=== PATIENT | female | born 1980 | race Caucasian/White ===

== ENCOUNTER 2017-12-13 19:49 | Emergency (ER) | payer OTHER ==
[2017-12-13 20:01] VITALS: BP 104/59; PULSE 88; TEMP 98.2; BMI 25.0
--- NOTE | 2017-12-13 20:03 | PDOC ---
Rapid Medical Evaluation Time Seen by Provider: 12/13/17 19:59 Medical Evaluation: Allergies Allergy/AdvReac Type Severity Reaction Status Date / Time No Known Allergies Allergy Verified 12/13/17 19:57 Vital Signs Temp Pulse Resp BP Pulse Ox 98.2 F 88 18 104/59 100 12/13/17 20:00 12/13/17 20:00 12/13/17 20:00 12/13/17 20:00 12/13/17 20:00 12/13/17 20:01 I have performed a brief in-person evaluation of this patient. The patient presents with a chief complaint of abdominal pain intermittently x 2 weeks states worse in past 4 days with nausea and vomiting. Patient reports normal bowel movement, pain is in epigastric area and is not associated with food. Pertinent physical exam finding are NAD lungs: clear bilaterally abdomen: + tenderness in mid epigastric area : no tenerness over suprapubis, no cva tenderness I have ordered the following: urinalysis, urine and labs ordered The patient will proceed to the ED for further evaluation.
[2017-12-13 22:01] LABS: BASO % 0.7 % (0-2.0); HEMATOCRIT 30.3 % (32.4-45.2); HEMOGLOBIN 10.2 GM/dL (10.7-15.3); LYMPH % 35.2 % (8-40); MCH 28.5 pg (25.7-33.7); MCHC 33.9 g/dl (32.0-36.0); MEAN CELL VOLUME 84.3 fl (80-96); MEAN PLT VOLUME 8.2 fl (7.5-11.1); MONO % 7.6 % (3.8-10.2); NEUT % 54.5 % (42.8-82.8); PLATELET COUNT 218 K/MM3 (134-434); RBC 3.59 M/mm3 (3.60-5.2); RDW 14.1 % (11.6-15.6); WHITE BLOOD COUNT 6.7 K/mm3 (4.0-10.0)
[2017-12-13 22:02] LABS: URINE APPEARANCE CLEAR; URINE BILIRUBIN NEGATIVE (<2.0 mg/dL); URINE BLOOD 2+ (NEGATIVE); URINE COLOR YELLOW; URINE GLUCOSE (UA) NEGATIVE (NEGATIVE); URINE KETONE NEGATIVE (NEGATIVE); URINE LEUK ESTERASE NEGATIVE (NEGATIVE); URINE NITRITE NEGATIVE (NEGATIVE); URINE PROTEIN NEGATIVE (NEGATIVE); URINE UROBILINOGEN NEGATIVE mg/dL (0.2-1.0)
[2017-12-13 22:03] LABS: HCG,QUALITATIVE URINE POSITIVE
[2017-12-13 22:05] LABS: EPI CELLS RARE /HPF (FEW); URINE MUCUS MANY
[2017-12-13 22:27] LABS: ALBUMIN 3.7 g/dl (3.4-5.0); ALK PHOS 49 U/L (45-117); ANION GAP 7 (8-16); BILIRUBIN,TOTAL 0.1 mg/dL (0.2-1.0); BLOOD UREA NITROGEN 11 mg/dL (7-18); CALCIUM 8.5 mg/dL (8.5-10.1); CHLORIDE 106 mmol/L (98-107); CO2 26 mmol/L (21-32); CREATININE 0.6 mg/dL (0.55-1.02); GLUCOSE,RANDOM 90 mg/dL (74-106); POTASSIUM 4.4 mmol/L (3.5-5.1); SGOT/AST 19 U/L (15-37); SGPT/ALT 24 U/L (12-78); SODIUM 139 mmol/L (136-145); TOT PROT 6.9 g/dl (6.4-8.2)
[2017-12-13 22:33] LABS: LIPASE 266 U/L (73-393)
[2017-12-13] MEDS ORDERED: ACETAMINOPHEN 1000 MG/100 ML VIAL (NON FORMULARY) IVPB ONE (22:41)
[2017-12-13] MEDS ORDERED: ACETAMINOPHEN INJECTION 100 ML IVPB ONE (22:50)
--- NOTE | 2017-12-13 23:55 | PDOC ---
History of Present Illness - General Chief Complaint: Pain, Acute Stated Complaint: ABD PAIN Time Seen by Provider: 12/13/17 19:59 - History of Present Illness Initial Comments: 12/13/17 23:53 CHIEF COMPLAINT: vomiting HISTORY OF PRESENT ILLNESS: 37 yo F with no significant PMH presents to ED with abdominal pain x 2 weeks and nausea and vomiting x 3-4 days. Patient denies fever, chills, or diarrhea, and reports that the abdominal pain is epigastric in nature. Patient states she is currently on her period, but "this period has been much heavier than usual." She reports regular monthly menses and no urinary symptoms. PAST MEDICAL HISTORY: Denies past medical history FAMILY HISTORY: Denies SOCIAL HISTORY:Denies tobacco, alcohol, illicit drug use. SURGICAL HISTORY: Denies ALLERGIES: No known drug allergies REVIEW OF SYSTEMS General/Constitutional: Denies fever or chills. Denies weakness, weight change. HEENT: Denies change in vision. Denies ear pain or discharge. Denies sore throat. Cardiovascular: Denies chest pain or shortness of breath. Respiratory: Denies cough, wheezing, or hemoptysis. Gastrointestinal: Abdominal pain x 2 weeks, nausea and vomiting x 3-4 days, denies diarrhea or constipation. Denies rectal bleeding. Genitourinary: Denies dysuria, frequency, or change in urination. Musculoskeletal: Denies joint or muscle swelling or pain. Denies neck or back pain. Skin and breasts: Denies rash or easy bruising. PHYSICAL EXAM General Appearance: Well-appearing, appropriately dressed. No apparent distress. HEENT: EOMI, PERRLA. No conjunctival pallor. No photophobia, scleral icterus. Respiratory/Chest: Lungs CTAB. Cardiovascular: RRR. S1, S2. Gastrointestinal/Abdominal: mild tenderness to left upper and lower abdomen. Normal bowel sounds. Abdomen soft, non-distended. No tenderness or rebound tenderness. No organomegaly, pulsatile mass, guarding, hernia, hepatomegaly, splenomegaly. Musculoskeletal/Extremities: Normal inspection. FROM of all extremities, normal capillary refill. Pelvis Stable. No CVA tenderness. No tenderness to extremities, pedal edema, swelling, erythema or deformity. Integumentary: Appropriate color, dry, warm. No cyanosis, erythema, jaundice or rash Neurologic: aerospace control and warning systems II-XII intact. Fully oriented, alert. Appropriate mood/affect. Motor strength 5/5. No appreciable EOM palsy, facial droop or sensory deficit. Past History - Past Medical History Allergies/Adverse Reactions: Allergies Allergy/AdvReac Type Severity Reaction Status Date / Time No Known Allergies Allergy Verified 12/13/17 19:57 Home Medications: Ambulatory Orders Levothyroxine Sodium [Levo-T] 75 mcg PO DAILY 12/13/17 Ondansetron [Zofran Odt -] 4 mg SL TID PRN #21 od.tablet 12/14/17 COPD: No Thyroid Disease: Yes (hypo) - Immunization History Immunization Up to Date: Yes - Suicide/Smoking/Psychosocial Hx Smoking History: Never smoked *Physical Exam - Vital Signs Last Vital Signs Temp Pulse Resp BP Pulse Ox 98.2 F 88 18 104/59 100 12/13/17 20:00 12/13/17 20:00 12/13/17 20:00 12/13/17 20:00 12/13/17 20:00 ED Treatment Course - LABORATORY CBC & Chemistry Diagram: 12/13/17 21:50 12/13/17 21:50 - ADDITIONAL ORDERS Additional order review: Laboratory Results 12/13/17 12/13/17 12/13/17 21:50 21:50 20:58 Sodium 139 Potassium 4.4 Chloride 106 Carbon Dioxide 26 Anion Gap 7 L BUN 11 Creatinine 0.6 Creat Clearance w eGFR > 60 Random Glucose 90 Calcium 8.5 Total Bilirubin 0.1 L AST 19 ALT 24 Alkaline Phosphatase 49 Total Protein 6.9 Albumin 3.7 Lipase 266 Cancelled Urine Color Yellow Urine Appearance Clear Urine pH 6.0 Ur Specific [place] 1.023 Urine Protein Negative Urine Glucose (UA) Negative Urine Ketones Negative Urine Blood 2+ H Urine Nitrite Negative Urine Bilirubin Negative Urine Urobilinogen Negative Ur Leukocyte Esterase Negative Urine WBC (Auto) 1 Urine RBC (Auto) 8 Ur Epithelial Cells Rare Urine Mucus Many Urine HCG, Qual Positive 12/13/17 21:50 RBC 3.59 L MCV 84.3 MCHC 33.9 RDW 14.1 MPV 8.2 Neutrophils % 54.5 Lymphocytes % 35.2 Monocytes % 7.6 Eosinophils % 2.0 Basophils % 0.7 - RADIOLOGY Radiology Studies Ordered: Category Date Time Status TRANSVAGINAL US PREG [US] Stat Ultrasound 12/13/17 22:40 Taken - Medications Given in the ED: ED Medications Discontinued Medications Generic Name Dose Route Start Last Admin Trade Name Freq PRN Reason Stop Dose Admin Acetaminophen 1,000 mg 12/13/17 22:41 12/13/17 22:50 Ofirmev Injection - IVPB 12/13/17 22:42 1,000 mg ONCE ONE Administration Medical Decision Making - Medical Decision Making 12/13/17 23:58 37 yo F with no significant PMH presents to ED with abdominal pain x 2 weeks and nausea and vomiting x 3-4 days. UA sent in E, negative. Patient urine HCG is positive. beta hcg sent, TVUS ordered. *DC/Admit/Observation/Transfer Diagnosis at time of Disposition: Threatened in early - Discharge Dispostion Disposition: HOME Condition at time of disposition: Stable Admit: No - Prescriptions Prescriptions: Ondansetron [Zofran Odt -] 4 mg SL TID PRN #21 od.tablet PRN Reason: Nausea And/Or Vomiting - Referrals Referrals: Gita Thornton MD [Primary Care Provider] - - Patient Instructions Printed Discharge Instructions: DI for Threatened Additional Instructions: As discussed, you MUST see your entry level recruiter or return to the ER in 48 hours (2 days) for a repeat ultrasound and bloodwork. If you develop any worsening pain, fever, persistent vomiting, significant bleeding (more than 1 soaked pad an hour ) or any new or worsening symptoms, please return to the ER immediately. Muna se discuti, DEBE consultar a velasquez gineclogo o regresar a la chepe de emergencias en 48 horas (2 white) para iqra nueva ecografa y anlisis de [place]. Si desarrolla un empeoramiento del dolor, fiebre, vmitos persistentes, hemorragia significativa (ms de 1 almohadilla empapada por hora) o cualquier s ntoma nuevo o que empeora, vuelva a la chepe de emergencias inmediatamente. Print Language: KHMER - Post Discharge Activity
--- NOTE | 2017-12-14 00:31 | PDOC ---
*Physical Exam - Vital Signs Last Vital Signs Temp Pulse Resp BP Pulse Ox 98.2 F 88 18 104/59 100 12/13/17 20:00 12/13/17 20:00 12/13/17 20:00 12/13/17 20:00 12/13/17 20:00 ED Treatment Course - LABORATORY CBC & Chemistry Diagram: 12/13/17 21:50 12/13/17 21:50 - ADDITIONAL ORDERS Additional order review: Laboratory Results 12/13/17 12/13/17 12/13/17 23:14 21:50 21:50 Sodium 139 Potassium 4.4 Chloride 106 Carbon Dioxide 26 Anion Gap 7 L BUN 11 Creatinine 0.6 Creat Clearance w eGFR > 60 Random Glucose 90 Calcium 8.5 Total Bilirubin 0.1 L AST 19 ALT 24 Alkaline Phosphatase 49 Total Protein 6.9 Albumin 3.7 Lipase 266 Beta HCG, Quant 14609.9 Urine Color Yellow Urine Appearance Clear Urine pH 6.0 Ur Specific [place] 1.023 Urine Protein Negative Urine Glucose (UA) Negative Urine Ketones Negative Urine Blood 2+ H Urine Nitrite Negative Urine Bilirubin Negative Urine Urobilinogen Negative Ur Leukocyte Esterase Negative Urine WBC (Auto) 1 Urine RBC (Auto) 8 Ur Epithelial Cells Rare Urine Mucus Many Urine HCG, Qual Positive 12/13/17 20:58 Sodium Potassium Chloride Carbon Dioxide Anion Gap BUN Creatinine Creat Clearance w eGFR Random Glucose Calcium Total Bilirubin AST ALT Alkaline Phosphatase Total Protein Albumin Lipase Cancelled Beta HCG, Quant Urine Color Urine Appearance Urine pH Ur Specific [place] Urine Protein Urine Glucose (UA) Urine Ketones Urine Blood Urine Nitrite Urine Bilirubin Urine Urobilinogen Ur Leukocyte Esterase Urine WBC (Auto) Urine RBC (Auto) Ur Epithelial Cells Urine Mucus Urine HCG, Qual 12/13/17 21:50 RBC 3.59 L MCV 84.3 MCHC 33.9 RDW 14.1 MPV 8.2 Neutrophils % 54.5 Lymphocytes % 35.2 Monocytes % 7.6 Eosinophils % 2.0 Basophils % 0.7 - Medications Given in the ED: ED Medications Discontinued Medications Generic Name Dose Route Start Last Admin Trade Name Freq PRN Reason Stop Dose Admin Acetaminophen 1,000 mg 12/13/17 22:41 12/13/17 22:50 Ofirmev Injection - IVPB 12/13/17 22:42 1,000 mg ONCE ONE Administration Medical Decision Making - Medical Decision Making 12/14/17 00:31 agree with care from HAYDEE Alonso *DC/Admit/Observation/Transfer Diagnosis at time of Disposition: Threatened in early - Discharge Dispostion Disposition: HOME Condition at time of disposition: Stable - Prescriptions Prescriptions: Ondansetron [Zofran Odt -] 4 mg SL TID PRN #21 od.tablet PRN Reason: Nausea And/Or Vomiting - Referrals Referrals: Gita Thornton MD [Primary Care Provider] - - Patient Instructions Printed Discharge Instructions: DI for Threatened Additional Instructions: As discussed, you MUST see your medical library assistant or return to the ER in 48 hours (2 days) for a repeat ultrasound and bloodwork. If you develop any worsening pain, fever, persistent vomiting, significant bleeding (more than 1 soaked pad an hour ) or any new or worsening symptoms, please return to the ER immediately. Revere se discuti, DEBE consultar a velasquez gineclogo o regresar a la chepe de emergencias en 48 horas (2 white) para iqra nueva ecografa y anlisis de [place]. Si desarrolla un empeoramiento del dolor, fiebre, vmitos persistentes, hemorragia significativa (ms de 1 almohadilla empapada por hora) o cualquier s ntoma nuevo o que empeora, vuelva a la chepe de emergencias inmediatamente. Print Language: UKRAINIAN - Post Discharge Activity
[2017-12-14] MEDS ORDERED: ONDANSETRON *ODT* 4 MG TABLET SL ONE (01:12)
== END 2017-12-14 00:38 | disposition home or self-care (01) ==
LOC: JER 19:49
PROC: 3E033NZ Introduction of Analgesics, Hypnotics, Sedatives into Peripheral Vein, Percutaneous Approach (ICD-10-PCS; principal; 2017-12-13)
DX: O26.891 Other specified pregnancy related conditions, first trimester (principal); O20.0 Threatened abortion; O99.281 Endocrine, nutritional and metabolic diseases complicating pregnancy, first trimester; E03.8 Other specified hypothyroidism; Z3A.01 Less than 8 weeks gestation of pregnancy
CPT/HCPCS: 36415; 76817-TC; 80053; 81003; 81015; 83690; 84702; 84703; 85025; 96374; 99282-25; J0131; Q0162